=== PATIENT | male | born 1985 | race Caucasian/White ===

== ENCOUNTER 2025-08-18 15:20 | Outpatient (AMB) | payer MEDICAID, SELFPAY ==
--- NOTE | 2025-08-18 15:29 | A.OFFVIS_ITS ---
Intake Visit Reasons: 6m Allergies Iodinated Contrast Media (IV DYE, IODINE CONTAINING) Allergy (Severe, Unverified 08/18/25 15:29) DIF BREATHING Medication List - Last Reconciled 08/18/25 by Ramila Blanco CNP baclofen 10 mg PO BID 90 days gabapentin 1,200 mg PO TID HPI Comments Details: He was doing okay. Taking gabapentin three times a day. No seizures. Stable hemiparesis. RUE stiffness and spasms are better with baclofen as needed, symptoms worse with colder weather. No medication side effects. Doing exercises for RUE. Headaches are okay. Sleep was okay, not using CPAP regularly. His last seizure was in 2008. 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 He has had serial MRIs which show an area of left temporal encephalomalacia and postoperative changes with no tumor recurrence. He has had complex partial seizures temporal lobe type initially treated with Depakote and Tegretol, and subsequently Neurontin. He has residual right hemiparesis and hemiatrophy. Review of Systems Const Denies chills, Denies daytime sleepiness, Reports difficulty sleeping, Denies fatigue, Denies fever(s), Denies frequent falls, Reports headache(s), Denies increased appetite, Denies poor appetite, Denies snoring, Denies weakness, Denies weight gain and Denies weight loss Eyes Denies loss of vision ENT Denies vertigo, Denies dizziness, Reports headache(s) and Denies neck pain Card Denies chest pain at rest, Denies chest pain with activity, Denies syncope, Denies leg edema, Denies palpitations, Denies dyspnea and Denies dyspnea on exertion Resp Denies cough, Denies dyspnea, Denies dyspnea on exertion and Denies snoring GI Denies abdominal pain, Denies constipation, Denies heartburn, Denies diarrhea and Denies nausea Denies urinary frequency, Denies urinary incontinence and Denies urinary urgency Musc Denies abnormal gait, Denies back pain, Denies myalgias, Denies arthralgias, Denies neck pain, Denies numbness and Denies tingling Neuro Denies abnormal gait, Denies vertigo, Denies dizziness, Denies syncope, Denies frequent falls, Reports headache(s), Denies lack of coordination, Denies loss of vision, Denies memory loss, Denies numbness, Denies Other visual disturbances, Denies restless legs, Denies seizure-like activity, Denies tingling, Denies paresthesias, Denies tremor(s) and Denies weakness Psych Denies anxiety, Denies depression, Denies auditory hallucinations, Denies memory loss and Denies visual hallucinations Endo Denies fatigue and Denies palpitations Physical Exam Const Other: General Appearance:? normal, in no acute distress. Heart:? S1, S2 normal, no murmurs. Lungs:? clear anteriorly and posteriorly. Musculoskeletal:? normal. Extremities:? no edema. Psych:? alert, oriented, cognitive function intact, cooperative with exam. Neuro Other: Abnormal Neurological Findings:?R hemiatrophy and hemiparesis with hyperreflexia. Choreiform movements of R hand intermittently. Mental Status: alert and oriented X 3. Normal attention, orientation, memory, and affect. Cranial Nerves: Pupils are equal, round, and reactive to light. External ocular muscles are intact. Visual carver are full, no ptosis. Face is symmetrical, no facial weakness or droop. Facial sensations are normal. Tongue protrudes in midline. Palate elevates symmetrically. Shoulder shrugging is normal Motor Examination: Left side normal muscle tone, bulk and strength. No atrophy or fasciculations. No drift of the extended upper extremities. DTR 2+. Plantars are flexor. Right hemiatrophy and hemiparesis with hyperreflexia and extensor plantar response. Sensory Exam: Normal light touch, temperature, pinprick, vibration, and joint- position sensations. Rhomberg sign is absent. Coordination: No ataxia. No titubation. Gait Exam: Within normal limits. Cerebellar Signs: [id number] is okay on left. Extrapyramidal System: No tremor, rigidity with normal facial expressions. No bradykinesia. No bradyphrenia. Normal arm swing and posture. No propulsion or retropulsion. Speech: Normal. Results Reviewed Results Reviewed: Status post resection of left frontal astrocytoma 1990. 02/05/16 awake and sleep EEG is within normal limits. 09/16/15 MRI shows post op changes with no tumor recurrence. 06/02/19 MRI shows old encephalomalacia 08/04/22 MRI stable with no change in tumor bed Assessment & Plan Assessment & Plan (1) Seizure disorder: Code(s): G40.909 - Epilepsy, unspecified, not intractable, without status epilepticus Category: Medical Plan: Continue gabapentin 600mg 2 tablets three times a day. (2) Hemiparesis: Code(s): G81.90 - Hemiplegia, unspecified affecting unspecified side Category: Medical Qualifiers: Hemiparesis etiology: unspecified Hemiparesis laterality: unspecified Qualified Code(s): G81.90 - Hemiplegia, unspecified affecting unspecified side Plan: Continue baclofen 10mg 1 tablet twice a day as needed for muscle spasm. (3) Brain tumor: Comment: Status post resection of left frontal astrocytoma 1990. Code(s): D49.6 - Neoplasm of unspecified behavior of brain Category: Medical Plan: MRI brain ordered, last MRI at [facility] in 07/2022 was stable. Follow up in 6 months or sooner as needed. Plan . Orders: Orders MR head/brain wo con Today D49.6 - Neoplasm of unspecified behavior of brain Medications: New gabapentin 1,200 mg (2 x 600 mg) PO TID 540 tabs 1RF 90 days Coding Level of Care Code Est Pt Level 4 (08772) Diagnoses Seizure disorder G40.909 Hemiparesis, unspecified hemiparesis etiology, unspecified laterality G81.90 Hemiparesis etiology: unspecified Hemiparesis laterality: unspecified Brain tumor D49.6
--- OUTSIDE RECORDS SUMMARY | 2025-08-18 16:36 | XMS_ITS | Patient Health Record ---
Author Organization [facility] Address [address] [place] [address] Care Team Providers Care Chief Nursing Executive Name Role Phone Ant Johansen Unavailable [phone] Reason For Referral No Information Plan Of Treatment No Information
--- OUTSIDE RECORDS SUMMARY | 2025-08-18 16:36 | XMS_ITS | Clinical Summary ---
Author Organization [facility] Address [address] [place] [address] Care Team Providers Care Special Projects Coordinator Name Role Phone Unavailable Primary Care Provider Unavailabl e Social History Tobacco Use Types Packs/Day Years Used Date Smoking Tobacco: Never Assessed Sex and Gender Information Value Date Recorded Sex Assigned at Not on file Legal Sex Male 9:20 PM EDT Gender Identity Not on file Sexual Orientation Not on file Plan of Treatment Health Maintenance Due Date Last Done Comments Depression Screening 1987 Lipid Panel 1987 SDOH Screening 1987 Disability Screening 1987 Alcohol/Substance Use Screening 1999 Tobacco Screening 1999 Family Planning (PISQ) 2002 HPV Vaccines (1 - Male 3-dos e series) 2002 Hepatitis C Screening 2005 Hepatitis B Vaccines (1 of 3 - 19+ 3-dose series) 2006 COVID-19 Vaccine (4 - 2024-2 6 season) 2025 09/30/2021, 03/03/2021, 02/10/2021 Influenza Vaccine (#1) 2025 , 08/07/2012, 07/28/2011 DTaP/Tdap/Td Vaccines (2 - T d or Tdap) 06/01/2031 06/01/2021 Zoster Vaccines (1 of 2) 2037 RSV Patients and Patients Aged 60 years or older (1 - 1-dose 75+ series) 2062 HIV Screening Completed 07/12/2024 HIB Vaccines Aged Out No longer eligi ble based on patient's age to complete this topic Hepatitis A Vaccines Aged Out No long er eligible based on patient's age to complete this topic IPV Vaccines Aged Out No longer eligi ble based on patient's age to complete this topic Meningococcal B Vaccine Aged Out No l onger eligible based on patient's age to complete this topic Meningococcal Vaccine Aged Out No arnel faye eligible based on patient's age to complete this topic Pneumococcal Vaccine: Pediatrics (0 to 5 Years) and At-Risk Patients (6 to 49) Years Aged Out No longer eligible b ased on patient's age to complete this topic RSV under 20 months Aged Out No longe r eligible based on patient's age to complete this topic Rotavirus Vaccines Aged Out No longer eligible based on patient's age to complete this topic
== END 2025-08-18 15:43 | disposition home or self-care (01) ==
LOC: HO.HSM 15:20
PROVIDERS: PCP Physician Assistant; Referring Provider Pediatrics; Visit Provider Registered Nurse
DX: G40.909 Epilepsy, unspecified, not intractable, without status epilepticus (principal); G81.90 Hemiplegia, unspecified affecting unspecified side; D49.6 Neoplasm of unspecified behavior of brain
CPT/HCPCS: 99214

== ENCOUNTER → 2025-08-18 15:20 | Outpatient (BNVA) | payer MEDICAID, SELFPAY | PROVIDERS: PCP Physician Assistant; Referring Provider Pediatrics; Visit Provider Registered Nurse | DX: G40.909 Epilepsy, unspecified, not intractable, without status epilepticus (principal); G47.33 Obstructive sleep apnea (adult) (pediatric); G81.91 Hemiplegia, unspecified affecting right dominant side; D49.6 Neoplasm of unspecified behavior of brain | CPT/HCPCS: 99212 ==